=== PATIENT | male | born 1995 | race Caucasian/White ===

== ENCOUNTER 2021-11-01 21:21 | Inpatient (IN) | payer MEDICAID ==
[~2021-11-01] VITALS: Ht 177.8 cm; Wt 118.8 kg
[2021-11-01 21:47] VITALS: BP 132/73
--- NOTE | 2021-11-01 22:00 | NUR ---
PT TO LOBBY TO A/W EVALUATION
--- NOTE | 2021-11-01 23:41 | NUR ---
Patient being evaluated by physician at bedside.
[2021-11-02 00:17] LABS: BASOPHILS % (AUTO) 0.2 % (0.0-2.0); EOSINOPHILS # (AUTO) 0.1 K/uL (0-0.4); EOSINOPHILS % (AUTO) 0.9 % (0.0-4.0); HEMATOCRIT 36.7 % (36-52); HEMOGLOBIN 12.4 g/dL (12.0-18.0); LYMPHOCYTES # (AUTO) 1.7 K/uL (2.0-11.5); MEAN CORPUSCULAR HEMOGLOBIN 28 pg (27-31); MEAN CORPUSCULAR HGB CONC 34 g/dL (33-37); MEAN CORPUSCULAR VOLUME 81.9 fL (80-94); MONOCYTES # (AUTO) 1.1 K/uL (0.8-1.0); MONOCYTES % (AUTO) 6.6 % (1.7-9.3); NEUTROPHILS # (AUTO) 13.6 K/uL (1.8-7.7); NEUTROPHILS % (AUTO) 82.3 % (42.2-75.2); PLATELET COUNT (AUTO) 538 K/uL (140-450); RED BLOOD CELL COUNT(AUTO) 4.48 MIL/uL (4.20-6.10); RED CELL DISTRIBUTION WIDTH 14.6 % (11.6-13.7); WHITE BLOOD COUNT (AUTO) 16.6 K/uL (4.8-10.8)
--- NOTE | 2021-11-02 00:18 | NUR ---
PT TO BED #12
[2021-11-02 01:06] LABS: ALBUMIN 3.9 g/dL (3.4-5.0); ANION GAP 16.3 (8-16); CARBON DIOXIDE 22.5 mmol/L (21-32); CREATININE 0.6 mg/dL (0.6-1.3); POTASSIUM 3.8 mmol/L (3.5-5.1); TOTAL BILIRUBIN 0.3 mg/dL (0.0-1.0)
[2021-11-02] MEDS ORDERED: PIPERACILLIN/TAZOBACTAM 3.375 GM in DEXTROSE 5% 50 ML IV ONE (01:10)
[2021-11-02] MEDS ORDERED: PIPERACILLIN/TAZOBACTAM 3.375 GM VIAL IV ONE ×3 (01:14→18:35)
[2021-11-02 01:16] LABS: APPEARANCE,URINE CLEAR (CLEAR); BILIRUBIN,URINE NEGATIVE (NEGATIVE); BLOOD, URINE NEGATIVE (NEGATIVE); COLOR,URINE YELLOW (YELLOW); LEUKOCYTE ESTERASE ,URINE NEGATIVE (NEGATIVE); NITRITE, URINE NEGATIVE (NEGATIVE); UGLUCOSE NEGATIVE (NEGATIVE)
--- NOTE | 2021-11-02 01:29 | NUR ---
CECILIA AND LACTIC TAKEN TO LAB
--- NOTE | 2021-11-02 01:48 | NUR ---
MED RECON COMPLETE. NO OPEN WOUNDS.
--- NOTE | 2021-11-02 02:10 | NUR ---
26 YO M C/O LT SIDED FACIAL SWELLING x1 DAY. PT RECENTLY COMPLETED 10 DAY COURSE OF AMOXICILLIN FOR SINUS INFECTION ON WEDNESDAY. +ENLARGE TONSILS WITH NO D/C. DENIES PAIN. MEDHX- RECURRENT SINUS INFECTIONS ALLX- ZITHROMAX
--- NOTE | 2021-11-02 04:02 | NUR ---
PT AMBULATED TO RR AND BACK TO BED
[2021-11-02] MEDS ORDERED: ZOLPIDEM 5 MG TAB PO PRN (06:05)
[2021-11-02] MEDS ORDERED: DOCUSATE SODIUM 100 MG GELCAP PO PRN (06:05)
[2021-11-02] MEDS ORDERED: MORPHINE SULFATE 2 MG/ML SYR IVP PRN (06:05)
[2021-11-02] MEDS ORDERED: HYDROcodone/APAP 7.5/325 MG 1 TAB PO PRN (06:05)
[2021-11-02] MEDS ORDERED: ONDANSETRON 4 MG/2 ML VIAL IM/IVP PRN (06:05)
[2021-11-02] MEDS ORDERED: VANCOMYCIN PER PHARMACY MC PRN (06:05)
[2021-11-02] MEDS ORDERED: ACETAMINOPHEN 325 MG TAB PO PRN (06:05)
[2021-11-02] MEDS ORDERED: POTASSIUM CHLORIDE 10 MEQ TABER PO PRN (06:05)
[2021-11-02] MEDS ORDERED: guaiFENesin DM 200/20 MG-10 ML 10 ML UDC PO PRN (06:05)
[2021-11-02] MEDS ORDERED: PIPERACILLIN/TAZOBACTAM 3.375 GM in DEXTROSE 5% 50 ML IV SCH (06:05)
--- NOTE | 2021-11-02 06:10 | NUR ---
PT IS AWAKE AND ALERT. ALL NEEDS MET AT THIS TIME.
[2021-11-02] MEDS ORDERED: VANCOMYCIN 1GM/DEXT 5% PREMIX 200 ML IV SCH (06:30)
[2021-11-02] MEDS ORDERED: VANCOMYCIN 1,000 MG VIAL ONE ×5 (06:42→20:02)
[2021-11-02] MEDS: NACL 0.9% 1,000 ML IV SCH ×2 (06:52→22:45)
[2021-11-02 06:57] LABS: PROTHROMBIN TIME 10.6 secs (10.8-13.4)
[2021-11-02 06:59] LABS: CHOL/HDL RATIO 3.7 (1-4.5); MAGNESIUM 2.1 mg/dL (1.8-2.4); PHOSPHORUS 3.3 mg/dL (2.5-4.9)
--- NOTE | 2021-11-02 07:17 | NUR ---
REPORT GIVEN TO CHRISTI GUZMAN. TRANSFER OF CARE AT THIS TIME.
--- NOTE | 2021-11-02 07:18 | NUR ---
RECEIVED REPORT FROM RUT BARRAZA, TRANSFER OF CARE AT THIS TIME. PT A/O X4 GCS 15, CAME IN FOR FACIAL SWELLING. PT DENIES ANY PAIN. EVEN AND UNLABORED RESPIRATIONS NOTED. ALL NEEDS MET
--- NOTE | 2021-11-02 07:18 | NUR ---
RECEIVED REPORT FROM RUT BARRAZA, TRANSFER OF CARE AT THIS TIME. PT A/O X4 GCS 15, CAME IN FOR FACIAL SWELLING. M/S HOLD, ADMITTING DIAGNOSIS PAROTITIS. PT DENIES ANY PAIN, L SIDED FACIAL SWELLING NOTED, DENIES SOB. EVEN AND UNLABORED RESPIRATIONS NOTED. ALL NEEDS MET
--- NOTE | 2021-11-02 07:42 | NUR ---
PT MOVED TO ER BED 7
--- NOTE | 2021-11-02 08:39 | NUR ---
PT PROVIDED WITH BREAKFAST AT THIS TIME, ALL NEEDS MET
--- NOTE | 2021-11-02 08:45 | NUR ---
PATIENT HAS BEEN SCREENED AND CATEGORIZED LOW NUTRITION RISK. PATIENT WILL BE SEEN WITHIN 7 DAYS OF ADMISSION. 11/03/21-11/09/[address]
[2021-11-02] MEDS: PANTOPRAZOLE 40 MG TABEC PO SCH (09:12)
[2021-11-02] MEDS ORDERED: VANCOMYCIN 1,000 MG in DEXTROSE 5% 250 ML IV SCH (09:30)
--- NOTE | 2021-11-02 11:00 | NUR ---
ORAL TEMP 99.8 PTS BLACKET REMOVED AND APPLIED COLD RAGS UNDER PTS ARMPITS AND ON FOREHEAD.
--- NOTE | 2021-11-02 12:20 | NUR ---
PT AMBULATED TO RESTROOM WITH STEADY GAIT
[2021-11-02 12:51] LABS: BASOPHILS % (AUTO) 0.3 % (0.0-2.0); EOSINOPHILS # (AUTO) 0.1 K/uL (0-0.4); EOSINOPHILS % (AUTO) 1.1 % (0.0-4.0); HEMATOCRIT 35.1 % (36-52); HEMOGLOBIN 11.7 g/dL (12.0-18.0); LYMPHOCYTES # (AUTO) 1.9 K/uL (2.0-11.5); LYMPHOCYTES % (AUTO) 14.5 % (20.5-51.1); MEAN CORPUSCULAR HEMOGLOBIN 28 pg (27-31); MEAN CORPUSCULAR HGB CONC 33 g/dL (33-37); MEAN CORPUSCULAR VOLUME 82.5 fL (80-94); MONOCYTES % (AUTO) 7.7 % (1.7-9.3); NEUTROPHILS # (AUTO) 10.1 K/uL (1.8-7.7); NEUTROPHILS % (AUTO) 76.4 % (42.2-75.2); PLATELET COUNT (AUTO) 459 K/uL (140-450); RED BLOOD CELL COUNT(AUTO) 4.25 MIL/uL (4.20-6.10); RED CELL DISTRIBUTION WIDTH 14.4 % (11.6-13.7); WHITE BLOOD COUNT (AUTO) 13.3 K/uL (4.8-10.8)
--- NOTE | 2021-11-02 12:54 | NUR ---
DR DE LA GARZA AT BEDSIDE EVALUATING PT
[2021-11-02 13:05] LABS: ANION GAP 12.8 (8-16); CREATININE 0.5 mg/dL (0.6-1.3); POTASSIUM 3.8 mmol/L (3.5-5.1)
--- NOTE | 2021-11-02 13:32 | NUR ---
Yang gonsalves in [facility] - 11/02/21 at 1332 by [email or web address] [id number]
--- NOTE | 2021-11-02 13:32 | NUR ---
MRSA SWAB COLLECTED AND HANDED TO DONALD HANNAH TECH
--- NOTE | 2021-11-02 14:37 | NUR ---
Patient will be admitted to care of [facility]. Admited to [facility]. Will go to room 112A. Belongings list completed. Report to YOUSUF BARRAZA.
[2021-11-02 15:57] VITALS: BP 113/60
[2021-11-02] MEDS ORDERED: VANCOMYCIN 1,500 MG in DEXTROSE 5% 500 ML IV SCH (16:00)
[2021-11-02] MEDS ORDERED: VANCOMYCIN 500 MG VIAL ONE ×2 (18:33→20:02)
[2021-11-02] MEDS: PIPERACILLIN/TAZOBACTAM 3.375 GM in DEXTROSE 5% 50 ML IV SCH (18:45)
--- NOTE | 2021-11-02 19:30 | NUR ---
RECEIVED REPORT FROM DAY SHIFT NURSE PIOTR FOR CONTINUITY OF CARE. PATIENT IS A&O X4. PATIENT IS ON ROOM AIR, BREATHING IS NORMAL WITH SYMMETRICAL RISE AND FALL OF CHEST. IV IS 20G MARTY, RUNNING NS AT 60ML AND IVPB OF ZOSYN WAS RUNNING. VANCOMYCIN STILL NEEDS TO BE HUNG WHEN ZOSYN FINISHES, MEDICATION WAS ALREADY PREPARED BY DAY SHIFT NURSE PIOTR. MOTHER IS AT PATIENT'S BEDSIDE, BED IS IN LOWEST POSITION WITH WHEELS LOCKED AND CALL LIGHT IN PLACE. WILL CONTINUE TO OBSERVE PATIENT.
[2021-11-02 20:00] VITALS: BP 112/62
--- NOTE | 2021-11-02 21:10 | NUR ---
SUSAN FINISHED, WENT TO HANG VANCOMYCIN THAT WAS PREPARED BY NURSE PIOTR AT 1950. NOTICED THAT DEXTROSE BAG WAS A 250ML, BAG NEEDED TO BE 500ML PER DOCTOR'S ORDERS. WENT AND GRABBED A 500ML BAG OF DEXTROSE AND PULLED VANCOMYCIN 1G AND 500MG FROM MEDICATION ROOM. WAS INTERRUPTED A FEW TIMES BY PHONE CALLS AND PATIENT'S NEEDING ASSISTANCE. PREPARED NEW BAG OF VANCOMYCIN AND ADMINISTERED AT 2100. PATIENT TOLERATED WELL. WILL CONTINUE TO OBSERVE PATIENT.
--- NOTE | 2021-11-02 23:00 | NUR ---
LOOKED IN ON PATIENT. PATIENT WAS SLEEPING. IV WAS RUNNING NS AT 60. BREATHING WAS NORMAL WITH SYMMETRICAL RISE AND FALL OF CHEST. WILL CONTINUE TO OBSERVE PATIENT.
[2021-11-03] MEDS ORDERED: PIPERACILLIN/TAZOBACTAM 3.375 GM VIAL IV ONE ×2 (00:12→07:15)
[2021-11-03] MEDS: PIPERACILLIN/TAZOBACTAM 3.375 GM in DEXTROSE 5% 50 ML IV SCH ×3 (00:15→14:56)
--- NOTE | 2021-11-03 01:00 | NUR ---
PATIENT IS STILL SLEEPING. WATER PITCHER WAS EMPTIED JUST BEFORE MIDNIGHT. WAS INFORMED BY DAY SHIFT NURSE THAT PATIENT IS TO BE NPO AFTER MIDNIGHT. HUNG PATIENT'S IVPB OF ZOSYN. CALLED PHARMACY TO INFORM THEM THAT VANCOMYCIN WAS NOT GIVEN UNTIL 2100. PHARMACY WILL READJUST SCHEDULE ON EMAR. BREATHING WAS NORMAL WITH SYMMETRICAL RISE AND FALL OF CHEST. WILL CONTINUE TO OBSERVE PATIENT
[2021-11-03] MEDS ORDERED: VANCOMYCIN 500 MG VIAL ONE (01:09)
[2021-11-03] MEDS ORDERED: VANCOMYCIN 1,000 MG VIAL ONE (01:09)
--- NOTE | 2021-11-03 03:00 | NUR ---
PHARMACY HAD READJUSTED SCHEDULE OF VANCOMYCIN ON EMAR. LOOKED IN ON PATIENT. PATIENT WOKE UP. I INFORMED PATIENT THAT I WAS JUST LOOKING IN ON HIM. PATIENT SAID OKAY. I ASKED PATIENT HOW HE WAS DOING. HE STATED HE WAS FEELING MUCH BETTER AND FELT LIKE THE MEDICATION HAD BEEN HELPING A LOT. I SAID THAT'S GOOD AND TOLD PATIENT TO TRY AND GET MORE SLEEP. PATIENT SAID HE WOULD. WILL CONTINUE TO OBSERVE PATIENT.
[2021-11-03] MEDS: NACL 0.9% 1,000 ML IV SCH (03:43)
[2021-11-03 04:00] VITALS: BP 111/64
--- NOTE | 2021-11-03 04:10 | NUR ---
MESSAGED DOCTOR DE LA GARZA ABOUT PATIENT BEING NPO AFTER MIDNIGHT. COULD NOT FIND ANY ORDERS TO ON FILE TO CONFIRM THIS. PENDING DOCTOR'S REPLY.
[2021-11-03] MEDS: VANCOMYCIN 1,500 MG in DEXTROSE 5% 500 ML IV SCH ×2 (04:38→12:12)
--- NOTE | 2021-11-03 05:00 | NUR ---
OBTAINED 0400 VITALS AND ADMINISTERED MEDICATION VANCOMYCIN IVPB. VITALS WERE: TEMP 96.5, HR 76, BP 111/64, O2 96, RR 18. PATIENT WAS SLEEPING. WAS WOKEN UP FOR VITALS. AFTER VITALS PATIENT WENT BACK TO SLEEP. WILL CONTINUE TO OBSERVE PATIENT.
--- NOTE | 2021-11-03 05:29 | NUR ---
DOCTOR HOLLI MESSAGED BACK CONFIRMING THAT THE PATIENT IS TO BE NPO AFTER MIDNIGHT. WILL CHANGE PATIENT'S DIET TO REFLECT DOCTOR'S ORDERS.
--- NOTE | 2021-11-03 07:28 | NUR ---
GOT REPORT FROM THE NIGHT NURSE, PT IS AWAKE DISCUSSED POC [id number]
--- NOTE | 2021-11-03 07:28 | NUR ---
ADMINISTERED 0700 IVPB MEDICATION. PATIENT WAS AWAKE, SITTING UP IN BED. PATIENT IS TOLERATING MEDICATION WELL. WILL ENDORSE CARE TO DAY SHIFT NURSE.
--- NOTE | 2021-11-03 07:40 | NUR ---
ENDORSED TO DAY SHIFT NURSE PIOTR FOR CONTINUITY OF CARE. PATIENT IS STABLE.
[2021-11-03 08:00] VITALS: BP 102/68
[2021-11-03] MEDS: PANTOPRAZOLE 40 MG TABEC PO SCH (08:36)
[2021-11-03 09:06] LABS: LACTATE DEHYDROGENASE 152 IU/L (121-224)
[2021-11-03 10:21] LABS: BASOPHILS % (AUTO) 0.3 % (0.0-2.0); EOSINOPHILS # (AUTO) 0.3 K/uL (0-0.4); HEMATOCRIT 35.6 % (36-52); LYMPHOCYTES % (AUTO) 18.1 % (20.5-51.1); MEAN CORPUSCULAR HEMOGLOBIN 28 pg (27-31); MEAN CORPUSCULAR HGB CONC 34 g/dL (33-37); MEAN CORPUSCULAR VOLUME 83.1 fL (80-94); MONOCYTES # (AUTO) 0.8 K/uL (0.8-1.0); MONOCYTES % (AUTO) 7.1 % (1.7-9.3); NEUTROPHILS # (AUTO) 7.8 K/uL (1.8-7.7); NEUTROPHILS % (AUTO) 71.5 % (42.2-75.2); PLATELET COUNT (AUTO) 494 K/uL (140-450); RED BLOOD CELL COUNT(AUTO) 4.29 MIL/uL (4.20-6.10); RED CELL DISTRIBUTION WIDTH 14.7 % (11.6-13.7); WHITE BLOOD COUNT (AUTO) 10.9 K/uL (4.8-10.8)
[2021-11-03 10:41] LABS: ANION GAP 11.4 (8-16); CARBON DIOXIDE 27.7 mmol/L (21-32); CREATININE 0.7 mg/dL (0.6-1.3); POTASSIUM 4.1 mmol/L (3.5-5.1)
[2021-11-03] MEDS ORDERED: LEVO-481 PO (12:07)
[2021-11-03] MEDS ORDERED: METR-435 PO (12:07)
[2021-11-03 15:15] VITALS: BP 102/68
[2021-11-03 16:00] VITALS: BP 113/72
--- NOTE | 2021-11-03 16:44 | NUR ---
PT LEFT THE UNIT, DISCHARGE INSTRUCTION IS GIVEN, IV AND ID BAND REMOVED PT LEFT WAKING WITH MOM .[id number]
== END 2021-11-03 16:35 | disposition home or self-care (01) | DRG 720 ==
LOC: MED 21:21 → MTU 11-02 03:49
PROVIDERS: ADMIT Student in an Organized Health Care Education/Training Program; ATTEND Student in an Organized Health Care Education/Training Program
DX: A41.9 Sepsis, unspecified organism (principal); K65.9 Peritonitis, unspecified; Z20.822 Contact with and (suspected) exposure to COVID-19; Z79.899 Other long term (current) drug therapy; Z88.8 Allergy status to other drugs, medicaments and biological substances; K11.20 Sialoadenitis, unspecified
CPT/HCPCS: 36415; 70486; 80048; 80053; 81003; 82150; 83036; 83605; 83625; 83690; 83735; 84100; 85025; 85610; 85730; 87040; 87081; 96365; 99291; J2543; J3370; J7060